=== PATIENT | female | born 1960 | race African-American/Black ===

== ENCOUNTER 2020-09-15 09:25 | Emergency (ER) | payer OTHER, MEDICARE, MEDICAID ==
[~2020-09-15] VITALS: Ht 160 cm; Wt 63.2 kg
[~2020-09-15 09:25] MED LIST: ALEVE220 M2 PO; APAP/TRAMADL1 TAB PO; ASPIRIN LOW DOS81 M2 PO; BENZONATATE200 MG PO; CONTOUR NEXT TEST ST VI; DIOVAN HCT160 MG/25 PO; DIOVAN HCT320 MG/25 PO; FISH OIL1000 MG PO; FLEXERIL PO; GABAPENTIN300 MG PO; HYDROCHLORO25 MG/TAB PO; HYDROCHLOROTH12.5 MG PO; HYZAAR1 TA2 PO; INSULIN SY SC; INSULIN SY0.5 MG/38 SC; KETOROLAC60 MG/2 ML IJ; LANTUS SOLOSTAR SC; LANTUS100 MG/ML SC; LIPITOR20 MG PO; LISINOP/HCTZ1 TAB PO; LOPID600 MG PO; METFORMIN1000 MG PO; METFORMIN500 MG PO; MICROLET TOP; NAPROSYN500 MG PO; NORCO1 TA2 PO; NORVASC PO; SOLU-MEDROL125 MG IM; SOMA350 MG PO; TRAMADOL HCL50 MG PO; ULTRAM50 M1 PO
[2020-09-15] MEDS ORDERED: LEVEMIR100 UNIT/M PO (10:34)
[2020-09-15] MEDS ORDERED: FLEXERIL5 MG PO (12:13)
[2020-09-15] MEDS ORDERED: ULTRAM50 MG PO (12:13)
[2020-09-15 12:18] VITALS: BP 168/80
== END 2020-09-15 12:20 | disposition home or self-care (01) | DRG 552 ==
LOC: ED 09:25
DX: S16.1XXA Strain of muscle, fascia and tendon at neck level, initial encounter (principal); S39.012A Strain of muscle, fascia and tendon of lower back, initial encounter; S46.912A Strain of unspecified muscle, fascia and tendon at shoulder and upper arm level, left arm, initial encounter; I10 Essential (primary) hypertension; E11.9 Type 2 diabetes mellitus without complications; V49.40XA Driver injured in collision with unspecified motor vehicles in traffic accident, initial encounter; Z79.4 Long term (current) use of insulin

== ENCOUNTER 2023-03-26 13:39 | Emergency (ER) | payer MEDICARE, MEDICAID ==
[~2023-03-26] VITALS: Ht 160 cm; Wt 108.9 kg
[~2023-03-26 13:39] MED LIST changes: +FLEXERIL5 MG PO; +LEVEMIR100 UNIT/M PO; +ULTRAM50 MG PO
[2023-03-26 14:30] VITALS: BP 180/80
[2023-03-26 15:01] VITALS: BP 159/68
[2023-03-26 15:31] VITALS: BP 172/71
[2023-03-26 16:01] VITALS: BP 157/62
[2023-03-26 16:31] VITALS: BP 151/58
[2023-03-26 16:51] VITALS: BP 151/58
== END 2023-03-26 17:07 | disposition home or self-care (01) ==
LOC: ED 13:39
DX: J06.9 Acute upper respiratory infection, unspecified (principal); I10 Essential (primary) hypertension; E11.9 Type 2 diabetes mellitus without complications; Z79.4 Long term (current) use of insulin; Z79.84 Long term (current) use of oral hypoglycemic drugs; Z20.822 Contact with and (suspected) exposure to COVID-19

== ENCOUNTER 2024-06-19 20:33 | Emergency (ER) | payer MEDICARE, MEDICAID ==
[~2024-06-19] VITALS: Ht 160 cm; Wt 108.0 kg
[~2024-06-19 20:33] MED LIST changes: -GABAPENTIN300 MG PO; +NEURONTIN800 MG PO
[2024-06-19] MEDS ORDERED: BUTALBITAL-APAP-CAFFEINE 50-325-40 TAB PO ONE (22:25)
[2024-06-19] MEDS ORDERED: FIORICET 50-3001 CAP PO (23:50)
[2024-06-20 00:15] VITALS: BP 169/89
[2024-06-20] MEDS ORDERED: TRESIBA FL100 UNIT/M SC (05:19)
[2024-06-20] MEDS ORDERED: OZEMPIC2 MG SC (05:20)
[2024-06-20] MEDS ORDERED: NIACIN ER1000 MG PO (05:20)
[2024-06-20] MEDS ORDERED: HYDROCHLOROT25 MG PO (05:21)
[2024-06-20] MEDS ORDERED: LOSARTAN POTAS100 MG PO (05:21)
[2024-06-20] MEDS ORDERED: ATORVASTATIN CA10 MG PO (05:22)
[2024-06-20] MEDS ORDERED: METOPROLOL100 M1 PO (05:23)
[2024-06-20] MEDS ORDERED: MELOXICAM7.5 MG PO (05:24)
[2024-06-20] MEDS ORDERED: ZITHROMAX250 MG PO (05:24)
== END 2024-06-20 00:15 | disposition home or self-care (01) ==
LOC: ED 20:33
DX: U07.1 COVID-19 (principal); J02.9 Acute pharyngitis, unspecified; R05.9 Cough, unspecified; M79.10 Myalgia, unspecified site; R51.9 Headache, unspecified; R50.9 Fever, unspecified; I10 Essential (primary) hypertension; E11.9 Type 2 diabetes mellitus without complications; Z79.84 Long term (current) use of oral hypoglycemic drugs; Z79.4 Long term (current) use of insulin